=== PATIENT | female | born 1995 | race Caucasian/White ===

== ENCOUNTER 2017-06-10 19:24 | Inpatient (IN) | payer OTHER ==
[~2017-06-10] VITALS: Ht 160 cm; Wt 67.3 kg
[~2017-06-10 19:24] MED LIST: A/B OTIC15 ML; HUMALOG200 U/ML SC; HUMI SC; HUMULIN R U SC; HUMULIN10 ML SC; LANTI SQ; LANTUS SOLOS100 U/M1 SC; LANTUS SOLOS100 U/M1 SQ; LEVEMIR100 U/M1 SQ; REG10 PO
[2017-06-10 22:56] LABS: BASOPHIL % 0.7 % (0-2); RED CELL DISTRIBUTION WIDTH 13.7 % (11.5-14.5)
[2017-06-10 23:04] LABS: UA SPECIFIC GRAVITY 1.025 (1.005-1.035); microscopic required? YES; urine erythrocyte NEGATIVE (NEGATIVE)
[2017-06-10 23:05] LABS: CALCIUM 9.4 mg/dL (8.5-10.1); CARBON DIOXIDE 25.6 mmol/L (21-32); CHLORIDE SERUM 90 mmol/L (98-107); CREATININE SERUM 1.2 mg/dL (0.6-1.0); GFR1 > 60 mL/min; GLUCOSE SERUM 383 mg/dL (74-106); PLATELET COUNT 459 x10^3mcL (130-400); POTASSIUM SERUM 3.8 mmol/L (3.5-5.1); SODIUM SERUM 132 mmol/L (136-145)
[2017-06-10 23:15] LABS: ALKALINE PHOSPHATASE 177 U/L (46-116); ALT/SGPT 31 U/L (14-59); AST/SGOT 21 U/L (15-37); BILIRUBIN TOTAL 0.5 mg/dL (0.20-1.00)
[2017-06-10 23:19] LABS: ALBUMIN 3.1 g/dL (3.4-5.0); AMYLASE 287 U/L (25-115); TOTAL PROTEIN, SERUM 8.3 g/dL (6.4-8.2)
[2017-06-10 23:26] LABS: LIPASE 5288 IU/L (73-393)
[2017-06-11] VITALS (8 sets, daily range): BP systolic 104–119; BP diastolic 67–77
[2017-06-11 01:12] LABS: T3 TOTAL 0.99 ng/mL
[2017-06-11 01:22] LABS: MAGNESIUM 2.4 mg/dL (1.8-2.4); PHOSPHOROUS 5.4 mg/dL (2.5-4.9)
[2017-06-11 01:25] LABS: CHOLESTEROL 413 mg/dL (<200); CHOLESTEROL/HDL RATIO 12.1; HDL CHOLESTEROL 34 mg/dL (40-60); TRIGLYCERIDES 964 mg/dL (<150)
[2017-06-11 01:47] LABS: FREE T4 0.92 ng/dL (0.76-1.46); FREE THYROXINE INDEX 2.9 ug/dL (1.4-4.5); T4(THYROXINE) 8.4 ug/dL (4.7-13.3)
[2017-06-11 07:02] LABS: BASOPHIL % 0.6 % (0-2); PLATELET COUNT 390 x10^3mcL (130-400); RED CELL DISTRIBUTION WIDTH 13.9 % (11.5-14.5)
[2017-06-11 07:17] LABS: CALCIUM 8.1 mg/dL (8.5-10.1); CARBON DIOXIDE 20.3 mmol/L (21-32); CHLORIDE SERUM 100 mmol/L (98-107); CREATININE SERUM 0.9 mg/dL (0.6-1.0); GFR1 > 60 mL/min; GLUCOSE SERUM 433 mg/dL (74-106); POTASSIUM SERUM 3.7 mmol/L (3.5-5.1); SODIUM SERUM 132 mmol/L (136-145)
[2017-06-11 17:23] LABS: AMPHETAMINE QUAL UR NONE DETECTED (NEG <=1000)
[2017-06-12 06:18] LABS: BASOPHIL % 0.8 % (0-2); PLATELET COUNT 389 x10^3mcL (130-400); RED CELL DISTRIBUTION WIDTH 13.7 % (11.5-14.5)
[2017-06-12 06:23] LABS: AMYLASE 113 U/L (25-115); CALCIUM 8.9 mg/dL (8.5-10.1); CARBON DIOXIDE 22.7 mmol/L (21-32); CHLORIDE SERUM 104 mmol/L (98-107); CREATININE SERUM 0.7 mg/dL (0.6-1.0); GFR1 > 60 mL/min; LIPASE 865 IU/L (73-393); MAGNESIUM 2.1 mg/dL (1.8-2.4); PHOSPHOROUS 3.2 mg/dL (2.5-4.9); SODIUM SERUM 138 mmol/L (136-145)
[2017-06-12 06:32] VITALS: BP 118/75
[2017-06-12 06:34] LABS: GLUCOSE SERUM 460 mg/dL (74-106)
[2017-06-12 10:39] VITALS: BP 108/67
[2017-06-12 17:32] VITALS: BP 112/76
[2017-06-12 22:07] VITALS: BP 106/67
[2017-06-13 05:25] VITALS: BP 99/53
[2017-06-13 06:51] LABS: BASOPHIL % 0.9 % (0-2); PLATELET COUNT 321 x10^3mcL (130-400); RED CELL DISTRIBUTION WIDTH 13.8 % (11.5-14.5)
[2017-06-13 07:15] LABS: CALCIUM 8.5 mg/dL (8.5-10.1); CHLORIDE SERUM 108 mmol/L (98-107); CREATININE SERUM 0.4 mg/dL (0.6-1.0); GFR1 > 60 mL/min; GLUCOSE SERUM 85 mg/dL (74-106); POTASSIUM SERUM 3.4 mmol/L (3.5-5.1); SODIUM SERUM 140 mmol/L (136-145)
[2017-06-13 08:36] VITALS: BP 99/53
[2017-06-13 09:52] VITALS: BP 105/66
[2017-06-13] MEDS ORDERED: HUMALOG100 U/ML SC ×3 (10:20→12:17)
[2017-06-13] MEDS ORDERED: HUMULIN 70/303 ML SC ×2 (10:21→12:23)
[2017-06-13] MEDS ORDERED: LANTUS SOLOS100 U/M1 SQ ×2 (10:22→12:17)
[2017-06-13] MEDS ORDERED: LOP600 PO (13:32)
== END 2017-06-13 13:54 | disposition home or self-care (01) | DRG 282 ==
LOC: ED 19:24 → DU 06-11 00:03 → MU 06-12 09:08
PROVIDERS: Emergency Medicine; Family Medicine; ADMIT Family Medicine
DX: K85.90 Acute pancreatitis without necrosis or infection, unspecified (principal); N17.0 Acute kidney failure with tubular necrosis; E44.0 Moderate protein-calorie malnutrition; E10.51 Type 1 diabetes mellitus with diabetic peripheral angiopathy without gangrene; E87.8 Other disorders of electrolyte and fluid balance, not elsewhere classified; E83.39 Other disorders of phosphorus metabolism; E10.65 Type 1 diabetes mellitus with hyperglycemia; K76.0 Fatty (change of) liver, not elsewhere classified; E87.1 Hypo-osmolality and hyponatremia; E87.6 Hypokalemia; E78.5 Hyperlipidemia, unspecified; D64.9 Anemia, unspecified; Z79.4 Long term (current) use of insulin; Z68.26 Body mass index [BMI] 26.0-26.9, adult
CPT/HCPCS: 82962; 83880; 84439; 90732; J1170; J1815; J2270; J2405; J7030; J7042; Q0092

== ENCOUNTER 2017-08-07 10:36 | Emergency (ER) | payer OTHER ==
[~2017-08-07] VITALS: Ht 160 cm; Wt 64.0 kg
[~2017-08-07 10:36] MED LIST changes: +HUMALOG100 U/ML SC; +HUMULIN 70/303 ML SC; +LOP600 PO
[2017-08-07 13:10] VITALS: BP 123/77
== END 2017-08-07 13:10 | disposition home or self-care (01) ==
LOC: ED 10:36
DX: J40 Bronchitis, not specified as acute or chronic (principal); E11.65 Type 2 diabetes mellitus with hyperglycemia; Z79.4 Long term (current) use of insulin
CPT/HCPCS: 82962; J1815; J1817; J7620